=== PATIENT | female | born 1945 | race Caucasian/White ===

== ENCOUNTER 2023-09-03 11:34 | Emergency (ER) | payer MEDICARE, OTHER ==
[~2023-09-03] VITALS: Ht 160 cm; Wt 66.1 kg
[~2023-09-03 11:34] MED LIST: ALBU18HF2 IH; CALCIUM PO; CHOL10002 PO; FLUT1DIS INH; TRIA1TAB3 PO
[2023-09-03 11:57] VITALS: BP 154/82; PULSE 55; RESP 16; TEMP 97.8; O2SAT 98
[2023-09-03] MEDS ORDERED: MOXI3DRO25 EACHEYE (13:00)
== END 2023-09-03 13:34 | disposition home or self-care (01) ==
LOC: ER 11:34
DX: H10.9 Unspecified conjunctivitis (principal); G43.909 Migraine, unspecified, not intractable, without status migrainosus; I10 Essential (primary) hypertension; J45.909 Unspecified asthma, uncomplicated; Z88.0 Allergy status to penicillin; Z91.041 Radiographic dye allergy status; Z91.09 Other allergy status, other than to drugs and biological substances; Z79.899 Other long term (current) drug therapy
CPT/HCPCS: 99283

== ENCOUNTER → 2024-12-10 | Outpatient (CLI) | payer MEDICARE, OTHER ==
[2024-12-10 09:42] LABS: BASOPHILS % (AUTO) 0.6 % (0-1); EOSINOPHILS # (AUTO) 0.3 X10'3 (0-0.9); EOSINOPHILS % (AUTO) 3.5 % (0-6); HEMATOCRIT 41.8 % (35.0-45.0); LYMPHOCYTES % (AUTO) 12.7 % (21-51); MEAN CORPUSCULAR HEMOGLOBIN 32.2 PG (27.0-31.0); MEAN CORPUSCULAR HGB CONC 33.6 g/dL (33.0-36.5); MEAN PLATELET VOLUME 8.5 FL (7.4-10.4); MONOCYTES # (AUTO) 0.9 X10'3 (0-0.9); MONOCYTES % (AUTO) 11.5 % (2-12); NEUTROPHILS # (AUTO) 5.8 X10'3 (1.8-7.7); NEUTROPHILS % (AUTO) 71.7 % (42-75); PLATELET COUNT 318 X10'3 (140-440); RED BLOOD COUNT 4.35 X10'6 (4.20-5.60); RED CELL DISTRIBUTION WIDTH 13.7 % (11.5-14.5); WHITE BLOOD COUNT 8.1 X10'3 (4.5-11.0)
[2024-12-10 09:46] LABS: BILIRUBIN,URINE NEGATIVE (Neg); CLARITY,URINE CLEAR (Clear); COLOR,URINE YELLOW (Yellow); GLUCOSE, URINE NEGATIVE (Neg); KETONES,URINE NEGATIVE (Neg); LEUKOCYTE ESTERASE ,URINE NEGATIVE (Neg); NITRITES, URINE NEGATIVE (Neg); OCCULT BLOOD,URINE NEGATIVE (Neg); PROTEIN,URINE NEGATIVE (Neg); UROBILINOGEN,URINE 0.2 E.U/dL (0.2-1.0)
[2024-12-10 09:59] LABS: UA COLLECTION TYPE CLN CATCH MIDSTREAM
[2024-12-10 10:10] LABS: ALANINE AMINOTRANSFERASE 19 U/L (12-78); ALBUMIN 3.5 G/DL (3.4-5.0); ALBUMIN/GLOBULIN RATIO 1.1 (1.1-1.5); ALKALINE PHOSPHATASE 96 IU/L (46-116); ANION GAP 6 (8-16); ASPARTATE AMINO TRANSFERASE 22 U/L (10-37); BILIRUBIN,TOTAL 0.9 MG/DL (0.1-1.0); BLOOD UREA NITROGEN 22 MG/DL (7-18); BUN/CREATININE RATIO 25.6 (10.0-20.0); CALCIUM 8.8 MG/DL (8.5-10.1); CHLORIDE 106 MMOL/L (99-107); CHOL/HDL RATIO 2.2 (0.00-4.99); CHOLESTEROL 211 MG/DL (0-200); CREATININE 0.86 MG/DL (0.40-0.90); FREE T4 (FREE THYROXINE) 1.01 NG/DL (0.73-1.40); GLUCOSE 119 MG/DL (70-104); HDL CHOLESTEROL 96 MG/DL (35-60); LDL CHOLESTEROL 97 MG/DL (50-100); MAGNESIUM 1.8 MG/DL (1.5-2.4); POTASSIUM 3.8 MMOL/L (3.5-5.1); SODIUM 141 MMOL/L (135-145); THYROID STIMULATING HORMONE 1.55 ulU/ml (0.34-4.50); TOTAL CARBON DIOXIDE 29.5 MMOL/L (24-32); TOTAL PROTEIN 6.6 G/DL (6.4-8.2); TRIGLYCERIDES 95 MG/DL (20-135); eGFR 63 ML/MIN
[2024-12-11 08:14] LABS: FTI 2.4 (1.2-4.9); THYROXINE (T4) 9.1 ug/dL (4.5-12.0)
== END | disposition home or self-care (01) ==
LOC: RAD 09:02
PROVIDERS: ATTEND Internal Medicine
DX: I10 Essential (primary) hypertension (principal); E78.5 Hyperlipidemia, unspecified; N39.0 Urinary tract infection, site not specified; D53.9 Nutritional anemia, unspecified; E03.9 Hypothyroidism, unspecified
CPT/HCPCS: 36415; 80053; 80061; 81003; 83036; 83735; 84436; 84439; 84443; 84479; 85025

== ENCOUNTER 2025-05-27 07:36 | Outpatient (CLI) | payer MEDICARE, OTHER ==
[2025-05-27 08:10] LABS: MEAN PLATELET VOLUME 9.2 FL (7.4-10.4); RED CELL DISTRIBUTION WIDTH 14.8 % (11.5-14.5)
[2025-05-27 08:24] LABS: LEUKOCYTE ESTERASE ,URINE NEGATIVE (Neg); NITRITES, URINE NEGATIVE (Neg); OCCULT BLOOD,URINE NEGATIVE (Neg)
[2025-05-27 08:37] LABS: UA COLLECTION TYPE CLN CATCH MIDSTREAM
[2025-05-27 08:39] LABS: SQUAMOUS EPITHELIAL CELL,UR FEW /LPF (FEW)
[2025-05-27 08:41] LABS: CHOL/HDL RATIO 2.2 (0.00-4.99); CREATININE 1.06 MG/DL (0.40-0.90); LDL CHOLESTEROL 94 MG/DL (50-100); TOTAL CARBON DIOXIDE 28.8 MMOL/L (24-32); eGFR 50 ML/MIN
--- NOTE | 2025-05-27 10:21 | RADIOLOGY REPORT ---
EXAM: CT CT HEAD INDICATION: HEADACHE TECHNIQUE: CT of the head without intravenous contrast. Coronal and sagittal reformatted images are s ubmitted. Radiation Dose : 1. Head: CT Dose: CTDI volume is 55.5 mGy. Dose-length product is 905.6 mGy*cm The dose indicators for CT are the volume Computed Tomography (CT) Dose Index (CTDIvol) and the Dose Length Product (DLP), and are measured in units of mGy and mGy-cm, respectively. These indicators are not patient dose, but values generated from the CT scanner acquisition factors. The report includes radiation exposure data for exposures received during this examination. All CT scans at this medical facility are performed using dose modulation techniques as appropriate to a performed exam including the following: Automated exposure control was utilized; adjustment of the MA and/or KV according to patient size; and use of iterative reconstruction technique. COMPARISON: None FINDINGS: There is no evidence of acute intracranial hemorrhage, extra-axial collection, mass effect, midline s hift, herniation or hydrocephalus. The ventricles, sulci and cisterns are age appropriate. Vascular atherosclerotic calcifications. The mo-white differentiation is intact. The visualized paranasal sinuses and mastoid air cells are clear. No depressed calvarial fracture. The surrounding soft tissues are unremarkable. IMPRESSION: 1. No acute intracranial abnormality.
--- NOTE | 2025-05-27 10:57 | RADIOLOGY REPORT ---
INDICATION: ALLERGIC RHINITIS EXAM DATE: 05/27/2025 08:17 AM COMPARISON: None TECHNIQUE: CT of the sinuses without intravenous contrast. RADIATION DOSE: CTDIvol: 55 mGy, DLP: 592.5 mGy*cm FINDINGS: Mild mucosal opacification of the right aspect of the sphenoid sinus. Mild mucosal opacification of the left maxillary sinus. The frontal sinuses are clear. The ostiomeatal unit complexes appear patent bilaterally. The cribriform plate and lamina papyracea appear grossly intact. No abnormality of the orbits or globes is identified. The visualized brain i s unremarkable. The surrounding soft tissues and osseous structures are unremarkable. IMPRESSION: Mild mucosal opacification of the right aspect of the sphenoid sinus. Mild mucosal opacification of the left maxillary sinus.
== END 2025-05-27 23:59 | disposition home or self-care (01) ==
LOC: RAD 07:36
PROVIDERS: ATTEND Internal Medicine
DX: J32.3 Chronic sphenoidal sinusitis (principal); J32.0 Chronic maxillary sinusitis; E78.5 Hyperlipidemia, unspecified; N39.0 Urinary tract infection, site not specified; R73.01 Impaired fasting glucose; R51.9 Headache, unspecified; J30.9 Allergic rhinitis, unspecified
CPT/HCPCS: 36415; 70450; 70486; 80053; 80061; 81001; 83036; 85025

== ENCOUNTER 2025-09-12 09:32 | Outpatient (CLI) | payer MEDICARE, OTHER ==
[2025-09-12 10:17] LABS: LEUKOCYTE ESTERASE ,URINE NEGATIVE (Neg); NITRITES, URINE NEGATIVE (Neg); OCCULT BLOOD,URINE NEGATIVE (Neg)
[2025-09-12 10:24] LABS: UA COLLECTION TYPE NON-SPECIFIED
[2025-09-12 10:25] LABS: CHOL/HDL RATIO 2.2 (0.00-4.99); CREATININE 1.00 MG/DL (0.40-0.90); LDL CHOLESTEROL 104 MG/DL (50-100); TOTAL CARBON DIOXIDE 31.1 MMOL/L (24-32); eGFR 53 ML/MIN
[2025-09-12 10:26] LABS: SQUAMOUS EPITHELIAL CELL,UR FEW /LPF (FEW); STARCH,URINE MODERATE /HPF (NEGATIVE)
== END 2025-09-12 23:59 | disposition home or self-care (01) ==
LOC: LAB 09:32
PROVIDERS: ATTEND Internal Medicine
DX: I10 Essential (primary) hypertension (principal); E78.5 Hyperlipidemia, unspecified; N39.0 Urinary tract infection, site not specified; R73.01 Impaired fasting glucose
CPT/HCPCS: 36415; 80053; 80061; 81001; 83036